=== PATIENT | male | born 1940 | race Caucasian/White ===

== ENCOUNTER 2024-02-28 14:56 | Emergency (ER) | payer MEDICARE, OTHER, SELFPAY ==
[2024-02-28 14:58] VITALS: BP 133/83
[2024-02-28 15:44] LABS: ALT (SGPT) 15 U/L (0-50); AST (SGOT) 24 U/L (17-59); Alkaline Phosphatase 90 U/L (38-126); Blood Urea Nitrogen 27 mg/dl (9-20); Calcium 9.3 mg/dl (8.4-10.2); Carbon Dioxide 16 mmol/L (22-30); Chloride 110 mmol/L (98-107); Glucose 119 mg/dl (70-99); Potassium 3.9 mmol/L (3.5-5.1); Sodium 136 mmol/L (135-145); Total Bilirubin 1.3 mg/dl (0.2-1.3); Total Protein 6.9 g/dl (6.3-8.2); eGFR 49.87
[2024-02-28 15:47] LABS: COVID-19 Antigen Negative (Negative)
[2024-02-28 16:20] VITALS: BP 138/92
--- NOTE | 2024-02-28 16:32 | ED.GENMED ---
History of Present Illness
General
Chief Complaint: Fever
Source: patient and spouse
Exam Limitations: none
Time Seen by Provider: 02/28/24 16:14
Nursing documentation reviewed up to this point in time: agreed with
Travel History
Have you had any contact with someone who has COVID-19?: No
Do you have any symptoms of coronavirus? Fever > 100 degrees, chills, cough, shortness of breath, sore throat, loss of taste or smell, muscle aches, or headache?: No
History of Present Illness
History of Present Illness:
Developed cough with brown secretions last PM. Today woke with temp of 103, weakness, worsening cough. Reports chills. No n/v/d. He was evaluated at and advised to come to ED for eval. Brought to ED by spouse.
Past History
Past History
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
ED Past Surgical History: Other
Social History
Tobacco: Former smoker
Alcohol: Former
Drug: None
Personal:
Living: with family
Review of Systems
Review of Systems
Allergies reviewed?: Yes
All Other Systems: ROS reviewed and negative except as documented in HPI and ROS
Constitutional: Reports fever and chills
Respiratory: Reports cough
Cardiac: Reports no symptoms
ABD/GI: Reports no symptoms
: Reports no symptoms
Musculoskeletal: Reports no symptoms
Skin: Reports no symptoms
Neurological: Reports weakness
Psychiatric: Reports no symptoms
Phy Exam
General Physical Exam
General Presentation: well appearing and no apparent distress
General age: appears stated age
General Skin: warm and dry
General Habitus: normal
General Mental: alert
General Hydration: appears well hydrated
Cardiovascular Exam
Cardiovascular Exam: regular rate/rhythm and no edema
Pulmonary Exam
Pulmonary Exam: no respiratory distress and chest non tender
Breath Sounds: Crackles: right lower
Gastrointestinal Exam
Gastrointestinal Exam: normal bowel sounds, non tender, soft and no organomegaly
Musculoskeletal Exam
Musculoskeletal Exam: full ROM and neuro vasc intact
Skin Exam
Skin Exam: normal color, warm/dry and no rash
Psychiatric Exam
Psychiatric Exam: normal mood/affect
Course
Orders/Labs/Results
Orders:
Orders
02/28/24 15:21
COVID-19 Antigen Urgent
Source: Nasal Swab
Comprehensive Metabolic Panel Urgent
Blood Culture Urgent
MAIK Source: Blood/Venous
Specimen Description:
02/28/24 16:29
0.9% Sodium Chloride 1000 ml [Nss] 1,000 ml IV BOLUS
02/28/24 16:31
CR Chest - 2 Views Urgent
Comment:
Reason For Exam: sob, cough
02/28/24 16:58
Complete Blood Count/With Diff Routine
02/28/24 18:15
Lactic Acid Urgent
02/28/24 19:15
Amoxicillin 875 mg/Clav 125 mg [Augmentin 875 mg/125 mg] 1 tablet PO NOW STA
Doxycycline [Vibramycin] 100 mg PO NOW STA
Abnormal Lab Results
02/28/24 02/28/24
15:21 16:58
WBC 16.1 H 10^3/uL
(4.8-10.8)
RBC 4.40 L 10^6/uL
(4.70-6.10)
Hct 38.0 L %
(39.0-52.0)
Abs Immat Gran (auto) 0.1 H 10^3/uL
(0-0.05)
Absolute Neuts (auto) 13.6 H 10^3/uL
(1.4-6.5)
Absolute Monos (auto) 1.1 H 10^3/uL
(0.1-0.6)
Neutrophils % 84.5 H %
(42.2-75.2)
Lymphocytes % 7.8 L %
(20.5-51.1)
Chloride 110 H mmol/L
(98-107)
Carbon Dioxide 16 L mmol/L
(22-30)
BUN 27 H mg/dl
(9-20)
Creatinine 1.4 H mg/dL
(0.7-1.3)
Glucose 119 H mg/dl
(70-99)
02/28/24 16:58
02/28/24 15:21
Vital Signs
Initial and Last Documented VS:
Initial Vital Signs
Temp Pulse Resp BP Pulse Ox
98.3 F 121 20 133/83 95
02/28/24 14:58 02/28/24 14:58 02/28/24 14:58 02/28/24 14:58 02/28/24 14:58
Last Documented Vital Signs
Temp Pulse Resp BP Pulse Ox
98.3 F 82 13 164/87 98
02/28/24 14:58 02/28/24 19:15 02/28/24 18:15 02/28/24 19:00 02/28/24 19:15
*Radiology
Radiology exam reviewed: radiology read reviewed
*Pulse Oximetry
Patient hypoxic: no
*Critical Care Note
Total Time (30-74mins, 75-104mins- exclusive of procedures): Not Applicable
Update Note
Update Note:
Labs, CXR reviewed with patient and spouse. He remains awake and alert, in no distress. No hypoxemia. He would like to go home. Augmentin and doxycycline started in dept. He is discharged home and will follow closely with PCP. Given
instructions on s/s to return to ED and he is agreeable to plan.
ED Attending Note
-
Portions of this chart may have been created with voice recognition software.� Occasional wrong word or��sound alike� substitutions may have occurred due to the inherent limitations of voice recognition software.
Discharge Plan
Departure
Patient Disposition: Home (Routine Discharge)
Date of Disposition: 02/28/24
Time of Disposition: 19:16
Patient with high blood pressure during this ER visit?: No
Condition: Good
Covid-19: Not Applicable
Discharge Problem:
Pneumonia
Instructions: Community-acquired pneumonia in adults, Fever, Adult (DC)
Prescriptions:
New
amoxicillin-pot clavulanate 875-125 mg tablet
1 tab PO BID Qty: 20 0RF
doxycycline hyclate 100 mg capsule
100 mg PO BID Qty: 20 0RF
No Action
tamsulosin 0.4 MG capsule
0.4 mg PO DAILY
cefuroxime axetil 500 MG tablet
500 mg PO BID 10 Days Qty: 20 0RF
azithromycin 250 MG tablet
250 mg PO DAILY 5 Days Qty: 5 0RF
Referrals:
Marc Ervin MD [Family Provider] - Follow up in 2-3 days
Activity Restrictions/Additional Instructions:
Return to the emergency department immediately for any changes in/worsening of your symptoms.
Interventions
Interventions:
*Risk Screen - Suicide Last Done: 02/28/24 17:45
*General Assessment Last Done: 02/28/24 17:45
*Neglect/Abuse Screening Last Done: 02/28/24 17:45
ED- Fall Risk Assessment Last Done: 02/28/24 17:45
*ED COVID-19 Vaccine History Last Done: 02/28/24 17:45
*Nursing Disposition Last Done: 02/28/24 19:48
ED- Neurological Assessment Last Done: 02/28/24 17:45
ED-Skin Assessment Last Done: 02/28/24 17:45
Discharge Date and Time
Discharge Date/Time: 02/28/24 19:54
Print Language: ETHIOPIAN
[2024-02-28] MEDS: NSS IV (17:03)
[2024-02-28 17:08] LABS: % Basophils 0.2 % (0-2); % Eosinophils 0.1 % (0-6); % Immature Granulocytes 0.4 % (0-0.5); % Lymphocytes 7.8 % (20.5-51.1); % Neutrophils 84.5 % (42.2-75.2); Absolute Immature Granulocytes 0.1 10^3/uL (0-0.05); Absolute Lymphocytes 1.3 10^3/uL (1.2-3.4); Absolute Monocytes 1.1 10^3/uL (0.1-0.6); Absolute Neutrophils 13.6 10^3/uL (1.4-6.5); Hemoglobin 13.2 g/dL (13.0-18.0); Mean Corp Hgb Conc. 34.7 g/dL (33.0-37.0); Mean Corpuscular Volume 86.4 fL (80.0-94.0); Mean Platelet Volume 10.1 fL (7.4-10.4); Nucleated Red Blood Cells % 0 % (-); Platelet Count 213 10^3/uL (130-400); Red Cell Dist. Width 13.8 % (11.5-14.5); White Blood Cell Count 16.1 10^3/uL (4.8-10.8)
[2024-02-28 17:15] VITALS: BP 154/68
[2024-02-28 17:45] VITALS: BMI 27.2
[2024-02-28 18:00] VITALS: BP 167/87
[2024-02-28] MEDS: NSS 1000 IV (18:17)
[2024-02-28 18:31] LABS: Lactic Acid 1.6 mmol/L (0.7-2.0)
[2024-02-28 19:00] VITALS: BP 164/87
[2024-02-28] MEDS: VIBRAMYCIN 100 MG PO (19:39)
[2024-02-28] MEDS: AUGMENTIN 875 MG/125 MG 1 TABLET PO (19:39)
== END 2024-02-28 19:54 | disposition home or self-care (01) ==
LOC: EMR 14:56
PROVIDERS: Emergency Medicine; Nurse Practitioner; EMERGENCY PHYSICIAN Emergency Medicine; FAMILY PHYSICIAN Internal Medicine Geriatric Medicine
DX: J18.9 Pneumonia, unspecified organism (principal); R50.9 Fever, unspecified; Z87.891 Personal history of nicotine dependence
CPT/HCPCS: 99283; 96360; 71046; 80053; 83605; 85025; 87040; 87811

== ENCOUNTER → 2024-06-22 07:18 | Outpatient (REF) | payer MEDICARE, OTHER, SELFPAY | LOC: HWRAD 07:18 | PROVIDERS: ATTENDING PHYSICIAN Internal Medicine Critical Care Medicine; FAMILY PHYSICIAN Internal Medicine Geriatric Medicine | DX: R91.1 Solitary pulmonary nodule (principal) | CPT/HCPCS: 71250 ==

== ENCOUNTER → 2025-04-28 08:40 | Outpatient (REF) | payer MEDICARE, OTHER, SELFPAY | LOC: HWRAD 08:40 | PROVIDERS: ATTENDING PHYSICIAN Nurse Practitioner Family | DX: R09.89 Other specified symptoms and signs involving the circulatory and respiratory systems (principal); I16.0 Hypertensive urgency | CPT/HCPCS: 76770; 93306; 93880; 93975 ==

== ENCOUNTER → 2025-05-23 13:22 | Outpatient (REF) | payer MEDICARE, OTHER, SELFPAY | LOC: HWRAD 13:22 | PROVIDERS: ATTENDING PHYSICIAN Internal Medicine Critical Care Medicine; FAMILY PHYSICIAN Internal Medicine Geriatric Medicine | DX: R91.1 Solitary pulmonary nodule (principal) | CPT/HCPCS: 71250 ==